=== PATIENT | female | born 1930 | race African-American/Black ===

== ENCOUNTER → 2017-04-01 | Outpatient (CLI) | payer MEDICARE, OTHER ==
[~2017-04-01] MED LIST: ACET1CAP18 PO; ALLO100T PO; AMLO10TA2 PO; ATOR40TA16 PO; CARV6.25 PO; FLEEENE3 RECTAL; FURO1TAB62 PO; LOSA50TA PO; MILKSUS PO; NITR0.4S SL; RANI150T PO; SENN1TAB2 PO; SPIR25TA PO; TRAM50TA PO; VITA500C9 CHEW; WARF4TAB51 PO; WARF4TAB52 PO
--- NOTE | 2017-04-01 10:51 | RADRPT ---
EXAM DATE/TIME: 04/01/2017 09:47 [place] COMPARISON: BA SWALLOW W/SPEECH PATHOLOGY, August 16, 2014, 0:00. INDICATIONS : Dysphagia FLUORO TIME: 1.7 minutes IMAGE COUNT: 2 CONTRAST: Dose as prescribed by speech pathologist. MEDICAL HISTORY : Stroke. SURGICAL HISTORY : None. ENCOUNTER: Initial ACUITY: 1 day PAIN SCORE: 0/10 LOCATION: Bilateral Esophagus FINDINGS: A modified barium swallow was performed with speech pathology. Patient was given a variety of liquids to swallow. Poor oral phase, negative for aspiration. For a full detailed report, see report by the speech pathologist. CONCLUSION: Negative for aspiration. Osvaldo Paredes MD FACR on April 01, 2017 at 10:49 Board Certified Radiologist. This report was verified electronically.
== END ==
LOC: HRAD 09:28
PROVIDERS: ATTEND Family Medicine
DX: R13.10 Dysphagia, unspecified (principal)
CPT/HCPCS: 74230; 92611; G8996; G8997; G8998